=== PATIENT | male | born 1980 | race Hispanic/Latino ===

== ENCOUNTER 2022-05-24 22:29 | Emergency (ER) | payer SELFPAY ==
[2022-05-24] MEDS ORDERED: Lidocaine 1% MPF 2 ML VIAL ONE (23:37)
[2022-05-24] MEDS ORDERED: Lidocaine 1% PF 5 ML VIAL ONE (23:40)
== END 2022-05-25 00:11 | disposition home or self-care (01) ==
LOC: ERS 22:29
DX: L02.214 Cutaneous abscess of groin (principal); E11.9 Type 2 diabetes mellitus without complications; I10 Essential (primary) hypertension; E78.5 Hyperlipidemia, unspecified; F17.290 Nicotine dependence, other tobacco product, uncomplicated; Z79.84 Long term (current) use of oral hypoglycemic drugs
CPT/HCPCS: 10060

== ENCOUNTER 2022-05-26 15:16 | Inpatient (IN) | payer SELFPAY ==
[~2022-05-26 15:16] MED LIST: Iopamidol-370 76% 500 ML 1 ML ONE
[2022-05-26] MEDS ORDERED: Piperacillin/Tazobactam 4.5 GM VIAL ONE (16:41)
[2022-05-26 16:55] LABS: #Eosinphils 0.1 thou/uL (0.0-0.7); #Lymphocytes 4.5 thou/uL (1.20-3.40); #Monocytes 1.4 thou/uL (0.11-0.59); #Neutrophils 9.3 thou/uL (1.40-6.50); %Basophils 0.2 % (0.0-1.0); %Eosinophils 0.6 % (0.0-10.0); %Lymphocytes 29.7 % (21.0-51.0); %Neutrophils 60.5 % (42.0-75.0); Hemoglobin 15.3 g/dL (14.0-18.0); Mean Corpuscular HGB CONC 33.2 g/dL (32.0-36.0); Mean Corpuscular Volume 87.4 fL (78.0-98.0); Platelet Count 162 thou/uL (130-400); RBC Distribution Width 12.3 % (11.5-14.5); Red Blood Cell (RBC) Count 5.28 mill/uL (4.70-6.10); White Blood Cell (WBC) Count 15.3 thou/uL (4.8-10.8)
[2022-05-26 17:09] LABS: PTT 31.2 sec (22.9-36.1)
[2022-05-26] MEDS ORDERED: Clindamycin/D5W 900 mg/50 ml Premix Bag ONE (17:14)
[2022-05-26 17:20] LABS: ALT (SGPT) 30 U/L (8-55); AST (SGOT) 17 U/L (5-34); Albumin 3.8 g/dL (3.5-5.0); Alkaline Phosphatase 97 U/L (40-110); Anion Gap 15 mmol/L (10-20); BUN (Urea Nitrogen) 9 mg/dL (8.9-20.6); Calc. Creatinine Clearance 0 mL/min (70-130); Calcium 9.1 mg/dL (7.8-10.44); Carbon Dioxide 24 mmol/L (22-29); Chloride 100 mmol/L (98-107); Estimated GFR 83; Glucose 387 mg/dL (70-105); Potassium 3.8 mmol/L (3.5-5.1); Protein, Total 7.8 g/dL (6.0-8.3); Sodium 135 mmol/L (136-145)
[2022-05-26 17:36] LABS: Bilirubin Negative (Negative); Blood, Urine Negative (Negative); Clarity Clear (Clear); Glucose, Urine (Dipstick) Greater than 1000 mg/dL (Negative); Ketone, Urine Trace mg/dL (Negative); Leukocyte Negative Leu/uL (Negative); Nitrite Negative (Negative); Protein, Urine (Dipstick) Negative (Neg-Trace); Specific Gravity, Urine 1.036 (1.002-1.036); Urobilinogen 6 mg/dL (Less than 2); pH, Urine 5.5 (5.0-9.0)
[2022-05-26] MEDS ORDERED: Dextrose 5% in Water 1,000 ML IV PRN (19:52)
[2022-05-26] MEDS ORDERED: Dextrose 50% Abboject 50 ML SYRINGE SLOW IVP PRN (19:52)
[2022-05-26 20:23] VITALS: BMI 39.6
[2022-05-26] MEDS ORDERED: Vancomycin 1 GM in Premix Bag 1 BAG IVPB SCH (21:00)
[2022-05-26] MEDS: HumaLOG 300 UNITS/3 ML VIAL SC PRN (21:37)
[2022-05-26] MEDS: Sodium Chloride 0.9% 1,000 ML IV SCH (21:37)
[2022-05-26] MEDS: Piperacillin/Tazobactam 3.375 GM in Sodium Chloride 0.9% 100 ML IVPB SCH (21:37)
[2022-05-27] MEDS: Acetaminophen 325 MG TAB PO PRN ×2 (04:06→20:15)
[2022-05-27 04:46] LABS: Hemoglobin A1c 9.3 % (4.0-6.0)
[2022-05-27 04:59] LABS: Anion Gap 11 mmol/L (10-20); BUN (Urea Nitrogen) 8 mg/dL (8.9-20.6); Calc. Creatinine Clearance 180 mL/min (70-130); Calcium 8.4 mg/dL (7.8-10.44); Carbon Dioxide 26 mmol/L (22-29); Chloride 103 mmol/L (98-107); Estimated GFR 95; Glucose 304 mg/dL (70-105); Potassium 3.9 mmol/L (3.5-5.1); Sodium 136 mmol/L (136-145)
[2022-05-27] MEDS: VANCOMYCIN 2 GRAM/500 ML BAG 2 GM in Premix Bag 1 BAG IVPB SCH ×2 (05:35→17:56)
[2022-05-27] MEDS: Piperacillin/Tazobactam 3.375 GM in Sodium Chloride 0.9% 100 ML IVPB SCH ×3 (05:35→20:16)
[2022-05-27] MEDS: HumaLOG 300 UNITS/3 ML VIAL SC PRN ×3 (06:27→20:17)
[2022-05-27] MEDS: Sodium Chloride 0.9% 1,000 ML IV SCH (07:35)
[2022-05-27 08:46] LABS: #Eosinphils 0.1 thou/uL (0.0-0.7); #Lymphocytes 3.5 thou/uL (1.20-3.40); #Monocytes 1.2 thou/uL (0.11-0.59); #Neutrophils 8.6 thou/uL (1.40-6.50); %Basophils 0.2 % (0.0-1.0); %Lymphocytes 25.8 % (21.0-51.0); %Monocytes 8.8 % (0.0-10.0); %Neutrophils 64.2 % (42.0-75.0); Hemoglobin 14.5 g/dL (14.0-18.0); Mean Corpuscular HGB CONC 33.3 g/dL (32.0-36.0); Mean Corpuscular Hemoglobin 29.3 pg (27.0-31.0); Mean Corpuscular Volume 87.7 fL (78.0-98.0); Mean Platelet Volume 10.6 fL (7.4-10.4); Platelet Count 151 thou/uL (130-400); RBC Distribution Width 12.1 % (11.5-14.5); Red Blood Cell (RBC) Count 4.95 mill/uL (4.70-6.10); White Blood Cell (WBC) Count 13.4 thou/uL (4.8-10.8)
[2022-05-27] MEDS ORDERED: Enoxaparin Sodium 40 MG/0.4 ML SYRINGE SC SCH (09:00)
[2022-05-27] MEDS: glipiZIDE 5 MG TAB PO SCH (17:53)
[2022-05-27] MEDS: metFORMIN 500 MG TAB PO SCH (17:53)
[2022-05-27] MEDS: Saccharomyces boulardii 250 MG CAP PO SCH (20:16)
[2022-05-28] MEDS: Piperacillin/Tazobactam 3.375 GM in Sodium Chloride 0.9% 100 ML IVPB SCH ×3 (05:32→19:31)
[2022-05-28] MEDS: HumaLOG 300 UNITS/3 ML VIAL SC PRN ×2 (05:32→12:00)
[2022-05-28 05:43] LABS: #Eosinphils 0.2 thou/uL (0.0-0.7); #Lymphocytes 3.3 thou/uL (1.20-3.40); #Monocytes 1.3 thou/uL (0.11-0.59); #Neutrophils 7.2 thou/uL (1.40-6.50); %Basophils 0.3 % (0.0-1.0); %Eosinophils 1.5 % (0.0-10.0); %Lymphocytes 27.6 % (21.0-51.0); %Monocytes 10.7 % (0.0-10.0); %Neutrophils 59.8 % (42.0-75.0); Hemoglobin 14.8 g/dL (14.0-18.0); Mean Corpuscular HGB CONC 33.4 g/dL (32.0-36.0); Mean Corpuscular Hemoglobin 29.3 pg (27.0-31.0); Mean Corpuscular Volume 87.7 fL (78.0-98.0); Mean Platelet Volume 10.4 fL (7.4-10.4); Platelet Count 165 thou/uL (130-400); RBC Distribution Width 12.1 % (11.5-14.5); Red Blood Cell (RBC) Count 5.06 mill/uL (4.70-6.10); White Blood Cell (WBC) Count 12.1 thou/uL (4.8-10.8)
[2022-05-28 06:01] LABS: Anion Gap 14 mmol/L (10-20); BUN (Urea Nitrogen) 7 mg/dL (8.9-20.6); Calc. Creatinine Clearance 236 mL/min (70-130); Calcium 8.9 mg/dL (7.8-10.44); Carbon Dioxide 23 mmol/L (22-29); Chloride 104 mmol/L (98-107); Estimated GFR 116; Glucose 215 mg/dL (70-105); Potassium 3.9 mmol/L (3.5-5.1); Sodium 137 mmol/L (136-145)
[2022-05-28 06:04] LABS: Vancomycin, Trough 9.4 ug/mL
[2022-05-28] MEDS: VANCOMYCIN 2 GRAM/500 ML BAG 2 GM in Premix Bag 1 BAG IVPB SCH (06:35)
[2022-05-28] MEDS ORDERED: metFORMIN 500 MG TAB PO SCH ×2 (09:11→09:15)
[2022-05-28] MEDS: glipiZIDE 5 MG TAB PO SCH ×2 (09:21→16:52)
[2022-05-28] MEDS: Acetaminophen 325 MG TAB PO PRN (09:21)
[2022-05-28] MEDS: metFORMIN 500 MG TAB PO SCH ×2 (09:22→16:55)
[2022-05-28] MEDS ORDERED: VANCOMYCIN 1.75 GM/500 ML BAG 1.75 GM in Premix Bag 1 BAG IVPB SCH (14:00)
[2022-05-28] MEDS: Saccharomyces boulardii 250 MG CAP PO SCH (19:31)
[2022-05-29] MEDS ORDERED: VANCOMYCIN 1.75 GM/500 ML BAG 1.75 GM in Premix Bag 1 BAG IVPB SCH (01:00)
[2022-05-29] MEDS: Piperacillin/Tazobactam 3.375 GM in Sodium Chloride 0.9% 100 ML IVPB SCH (04:28)
[2022-05-29] MEDS: HumaLOG 300 UNITS/3 ML VIAL SC PRN (06:12)
[2022-05-29 06:23] LABS: #Eosinphils 0.2 thou/uL (0.0-0.7); #Lymphocytes 3.8 thou/uL (1.20-3.40); #Monocytes 1.1 thou/uL (0.11-0.59); #Neutrophils 6.7 thou/uL (1.40-6.50); %Basophils 0.3 % (0.0-1.0); %Eosinophils 2.1 % (0.0-10.0); %Lymphocytes 32.2 % (21.0-51.0); %Monocytes 9.6 % (0.0-10.0); Hemoglobin 14.7 g/dL (14.0-18.0); Mean Corpuscular HGB CONC 33.3 g/dL (32.0-36.0); Mean Corpuscular Hemoglobin 29.3 pg (27.0-31.0); Mean Platelet Volume 10.2 fL (7.4-10.4); Platelet Count 199 thou/uL (130-400); RBC Distribution Width 11.9 % (11.5-14.5); Red Blood Cell (RBC) Count 5.03 mill/uL (4.70-6.10); White Blood Cell (WBC) Count 11.9 thou/uL (4.8-10.8)
[2022-05-29 06:54] LABS: Anion Gap 14 mmol/L (10-20); BUN (Urea Nitrogen) 8 mg/dL (8.9-20.6); Calc. Creatinine Clearance 222 mL/min (70-130); Carbon Dioxide 23 mmol/L (22-29); Chloride 103 mmol/L (98-107); Estimated GFR 113; Glucose 202 mg/dL (70-105); Magnesium 1.8 mg/dL (1.6-2.6); Potassium 3.7 mmol/L (3.5-5.1); Sodium 136 mmol/L (136-145)
[2022-05-29 07:36] VITALS: BP 130/83; TEMP 98
[2022-05-29 08:07] LABS: Vancomycin, Trough 16.6 ug/mL
[2022-05-29] MEDS: metFORMIN 500 MG TAB PO SCH (08:57)
[2022-05-29] MEDS: glipiZIDE 5 MG TAB PO SCH (08:58)
[2022-05-29] MEDS ORDERED: Amoxicillin/Potassium Clav 875 MG TAB PO SCH (09:00)
[2022-05-29] MEDS ORDERED: Doxycycline 100 MG CAP PO SCH (09:00)
== END 2022-05-29 10:20 | disposition home or self-care (01) | DRG 872 ==
LOC: ERS 15:16 → 2NO 18:56 → T4-A 05-27 15:38
PROVIDERS: ADMIT Internal Medicine; ATTEND Family Medicine
DX: A41.9 Sepsis, unspecified organism (principal); L03.314 Cellulitis of groin; I10 Essential (primary) hypertension; E78.5 Hyperlipidemia, unspecified; E11.65 Type 2 diabetes mellitus with hyperglycemia; Z20.822 Contact with and (suspected) exposure to COVID-19; U07.0 Vaping-related disorder; Z87.891 Personal history of nicotine dependence; Z82.3 Family history of stroke; Z98.890 Other specified postprocedural states; Z79.84 Long term (current) use of oral hypoglycemic drugs; Z82.49 Family history of ischemic heart disease and other diseases of the circulatory system
CPT/HCPCS: 36415; 36416; 80048; 80053; 80202; 81003; 83036; 83605; 83735; 85025; 85610; 85652; 85730; 86140; 87040; 87086; 93005; 94760; 96365; 96375; 97139; J1650; J1815; J2543; J3370; J3490; J7030; J7050; Q9967; U0003; U0005